=== PATIENT | female | born 1970 | race Caucasian/White ===

== ENCOUNTER 2017-03-26 11:41 | Emergency (ER) | payer OTHER ==
--- NOTE | ~2017-03-26 | EKG ---
PATIENT: TYLER FANG UNIT #: [id number] Ventricular Rate: 83 BPM Atrial Rate: 83 BPM P-R Interval: 136 ms QRS Duration: 76 ms Q-T Interval: 408 ms QTC Calculation(Bezet): 479 ms P [place]: 61 degrees Calculated R [place]: -51 degrees Calculated T [place]: 2 degrees Diagnosis Line: Normal sinus rhythm Diagnosis Line: Left anterior fascicular block Diagnosis Line: Minimal voltage criteria for LVH, may be normal Diagnosis Line: variant Diagnosis Line: Abnormal ECG Diagnosis Line: No previous ECGs available Diagnosis Line: Confirmed by TILA WALLACE MD ([id number]) on Diagnosis Line: 03/27/2017 8:21:56 AM INTERPRETING MD: RODRIGO KENNY
--- NOTE | ~2017-03-26 | CR72 ---
[facility] A Service of [facility] & [facility] RADIOLOGY TEXT RESULTS PATIENT: TYLER FANG LOCATION: [facility] : [birth year] UNIT #: [id number] AGE: [address]: Sidney Narvaez MD SEX: F ORDER DR: [id number] [facility] [address] [place], [place] [address] [id number] E MR#: [id number] Acc #: [id number] NAME: TYLER FANG : 1970 SEX: F STUDY DATE/TIME: 03/26/2017 12:16 UNIT: [facility] ROOM: STUDY DESCRIPTION: CR Chest Single View Portable Attending Physician: Sidney Narvaez M.D. Ordering Physician: Ed Andrew De Leon M.D. Primary Care Physician: Primary Care Physician No MEDICAL IMAGING REPORT This report is preliminary unless electronic signature is present EXAM Portable chest HISTORY Shortness of air, onset this morning. FINDINGS A single AP portable view of the chest shows both lungs to be clear. The heart is normal in size. The mediastinal contour is normal. No significant bone abnormalities are seen. IMPRESSION Normal portable chest. Dictated by... Gem Marie M.D. THIS IS AN ELECTRONICALLY VERIFIED REPORT Gem Marie M.D. at 03/27/2017 12:31 PM LUIS/maurice TD: 03/27/2017 00:18 JOB #: [id number] MEDICAL IMAGING REPORT Page 1 of 1 COPY
[~2017-03-26 11:41] MED LIST: ALBUTEROL17 GM INH; BACTRIM DS TABL1 TA1 PO; COMBIVENT U/D3 M3 INH; HYDROXYZINE HCL25 M1 DOB; MOTRIN400 MG PO; NAPROSYN500 MG PO; TRAMADOL HCL50 M2 PO; TRAZODONE PO
== END 2017-03-26 14:05 | disposition left against medical advice (07) ==
LOC: CED 11:41
DX: R42 Dizziness and giddiness (principal); F17.210 Nicotine dependence, cigarettes, uncomplicated; Z79.899 Other long term (current) drug therapy
CPT/HCPCS: 71010; 82947; 93005; 96360; 99284